=== PATIENT | female | born 1985 | race Caucasian/White ===

== ENCOUNTER 2018-02-28 06:40 | Inpatient (IN) ==
--- NOTE | 2018-02-28 09:31 | ED ---
History of Present Illness Primary Care Physician: UNKNOWN Chief Complaint: Contractions History of Present Illness: 32 year old female at 40 weeks and 2 days who presents with contractions. The contractions began at 1am and have been increasing in intensity and frequency now 3 minutes apart. Denies leakage of fluid or vaginal bleeding. Feeling baby moving. She has vomited twice today. No urinary complaints. Denies SOB, headache, or chest pain. No complications during . care at [facility]. Taking Valtrex prophylactically for herpes. Weeks Gestation:: 40 Para: 0 : 1 Review of Systems All other systems reviewed negative except as stated in HPI Constitutional: Denies fever(s) Cardiovascular: Denies chest pain Respiratory: Denies shortness of breath Gastrointestinal: Reports vomiting Genitourinary: Denies painful urination Neurologic: Denies headache(s) PMFSH - Medical / Surgical Hx Neg / Unobtainable Medical Problems Denied: Yes Surgical History: No Previous Surgery - Tobacco History Second Hand Smoke Exposure: Yes Smoking Status: Current some day smoker (2 cigarettes per day) - Alcohol History How Often Do You Have a Drink Containing Alcohol: Never - Substance Use History Substance History: No History of Abuse Medications and Allergies Allergies Allergy/AdvReac Type Severity Reaction Status Date / Time No Known Allergies Allergy Unverified 08/13/17 08:45 Home Medications Medication Instructions Recorded Confirmed Type valacyclovir [Valtrex] 500 mg PO DAILY 02/28/18 02/28/18 History Exam Vital signs: Vital Signs 02/28/18 06:53 02/28/18 07:19 02/28/18 07:20 Temperature 98.1 F Pulse Rate 76 Respiratory Rate 18 Blood Pressure 126/75 Narrative: GENERAL: Well-nourished, well-developed patient. SKIN: Warm and dry. HEAD: Normocephalic and atraumatic. EYES: No scleral icterus. No injection or drainage. ENT: No nasal drainage noted. Mucous membranes pink. Airway patent. NECK: Supple, trachea midline. No JVD. CARDIOVASCULAR: Regular rate and rhythm without murmurs, gallops, or rubs. RESPIRATORY: Breath sounds equal bilaterally. No accessory muscle use. BREASTS: Bilateral exam showed no masses , no retractions, no nipple discharge. ABDOMEN/GI: Abdomen soft, non-tender, bowel sounds present, no rebound, no guarding GENITOURINARY: External Genitalia: intact and normal in appearance Cervix: posterior Dilatation: 0 Effacement: 70 Station: -2 Membranes:intact Uterine Contractions: yes every 3 minutes FHT's: Category:1 Baseline: 140 Reactive: yes Variability: moderate Decels: none EXTREMITIES: No cyanosis or edema. BACK: Nontender without obvious deformity. No CVA tenderness. NEUROLOGICAL: Awake and alert. Motor and sensory grossly within normal limits. Five out of 5 muscle strength in all muscle groups. Normal speech. Results - Labs CBC & Chem 7: 02/28/18 10:18 Assessment and Plan - Diagnosis (1) Uterine contractions during Code(s): O62.2 - Other uterine inertia Status: Deleted Plan: 32 year old female at 40 weeks and 2 days who presents for contractions. No loss of fluid or vaginal bleeding. Feeling baby moving. Cervical check was 0 , 70, -2. monitoring shows category 1 reassuring and contractions every 3 minute. -Patient was experiencing increased painful contractions -Patient cervical exam was done again and 2cm dilated -Admitted to Labor and delivery - Attending Attestation I personally saw and evaluated the patient, will admit for early labor at term, augment if needed. Discussed risks of , risks and indications of delivery. SMS Discharge Plan - Discharge Order Discharge Orders: Discharge Order (Routine); Ordered 03/03/18 Ordered By: Maria Elena Parekh - Physicians Team Primary Care Provider: UNKNOWN, Attending Provider: Court Aaron V
[2018-02-28] MEDS ORDERED: Sodium Chlor 0.9% Inj 500 ML IV.SIG PRN (10:03)
[2018-02-28] MEDS ORDERED: Oxytocin 30 Units/500ml Premix 30 UNITS/500 ML BAG IV.SIG ONE (10:03)
[2018-02-28] MEDS ORDERED: Naloxone Inj 0.4 MG/ML Vial IV.PUSH PRN (10:03)
[2018-02-28] MEDS ORDERED: fentaNYL Citrate Inj 100 MCG/2 ML Ampul IV.PUSH PRN (10:03)
[2018-02-28] MEDS ORDERED: Sod Chloride 0.9% Inj 1,000 ML IV.CONT PRN (10:03)
--- NOTE | 2018-02-28 10:09 | P.HPOB ---
History of Present Illness Primary Care Physician: UNKNOWN Chief Complaint: Contractions History of Present Illness: 32 year old female at 40 weeks and 2 days who presents with contractions. The contractions began at 1am and have been increasing in intensity and frequency now 3 minutes apart. Denies leakage of fluid or vaginal bleeding. Feeling baby moving. She has vomited twice today. No urinary complaints. Denies SOB, headache, or chest pain. No complications during . GBS negative. care at [facility]. Taking Valtrex prophylactically for herpes. Weeks Gestation:: 40 Para: 0 : 1 Last menstrual period: 05/27/17 Review of Systems Constitutional: Denies chills, Denies fever(s) Cardiovascular: Denies chest pain Respiratory: Denies shortness of breath Gastrointestinal: Reports vomiting Genitourinary: Denies painful urination Neurologic: Denies headache(s) PMFSH - Medical / Surgical Hx Neg / Unobtainable Medical Problems Denied: Yes - Tobacco History Second Hand Smoke Exposure: Yes Smoking Status: Current some day smoker (2 cigarettes per day) - Alcohol History How Often Do You Have a Drink Containing Alcohol: Never - Substance Use History Substance History: No History of Abuse Medications and Allergies Active Medications: Active Medications Citric Acid/Sodium Citrate (Sodium Citrate/Citric Acid Liq) 30 ml PO STAFF CERTIFIED NURSE MIDWIFE [facility] Stop: 03/04/18 10:14 Fentanyl Citrate (Fentanyl Inj) 50 mcg IV.PUSH Q1H PRN PRN Reason: Pain Scale 3 - 5 Fentanyl Citrate (Fentanyl Inj) 100 mcg IV.PUSH Q1H PRN PRN Reason: PAIN SCALE 6 TO 10 Lactated Ringer's (Lr 1000 Ml Inj) 1,000 mls @ 125 mls/hr IV.CONT .Q8H [facility] Lactated Ringer's (Lr 1000 Ml Inj) 1,000 mls @ 3,000 mls/hr IV.SIG UNSCH PRN PRN Reason: compromise or epidural Sodium Chloride (Ns Inj) 500 mls @ 1,000 mls/hr IV.SIG UNSCH PRN PRN Reason: SEE LABEL COMMENTS Sodium Chloride (Ns Inj) 1,000 mls @ 100 mls/hr IV.CONT .Q10H PRN PRN Reason: SEE LABEL COMMENTS Oxytocin (Pitocin 30 Units/Ns 500 Ml Premix) 30 units in 500 mls @ 999 mls/hr IV.SIG BOLUS ONE Stop: 02/28/18 10:33 Lidocaine HCl (Xylocaine 1% Inj) 0.1 ml I-DERMAL PRN PRN PRN Reason: For IV start Stop: 03/03/18 10:02 Lidocaine HCl (Xylocaine 1% Inj) 10 ml INFILTRATN PRN PRN PRN Reason: For episiotomy repair Stop: 03/02/18 10:02 Mineral Oil (Muri-Lube Oil) 10 ml TOPICAL PRN PRN PRN Reason: PRN perineal massage Naloxone HCl (Narcan Inj) 0.1 mg IV.PUSH Q2M PRN PRN Reason: for opiate reversal Allergies Allergy/AdvReac Type Severity Reaction Status Date / Time No Known Allergies Allergy Unverified 08/13/17 08:45 Home Medications Medication Instructions Recorded Confirmed Type valacyclovir [Valtrex] 500 mg PO DAILY 02/28/18 02/28/18 History Exam Vital signs: Vital Signs 02/28/18 06:53 02/28/18 07:19 02/28/18 07:20 Temperature 98.1 F Pulse Rate 76 Respiratory Rate 18 Blood Pressure 126/75 Narrative: GENERAL: Well-nourished, well-developed patient. SKIN: Warm and dry. HEAD: Normocephalic and atraumatic. EYES: No scleral icterus. No injection or drainage. ENT: No nasal drainage noted. Mucous membranes pink. Airway patent. NECK: Supple, trachea midline. No JVD. CARDIOVASCULAR: Regular rate and rhythm without murmurs, gallops, or rubs. RESPIRATORY: Breath sounds equal bilaterally. No accessory muscle use. BREASTS: Bilateral exam showed no masses , no retractions, no nipple discharge. ABDOMEN/GI: Abdomen soft, non-tender, bowel sounds present, no rebound, no guarding GENITOURINARY: External Genitalia: intact and normal in appearance Cervix: posterior Dilatation: 2 Effacement: 70 Station: -2 Membranes:intact Uterine Contractions: yes every 3 minutes FHT's: Category:1 Baseline: 140 Reactive: yes Variability: moderate Decels: none EXTREMITIES: No cyanosis or edema. BACK: Nontender without obvious deformity. No CVA tenderness. NEUROLOGICAL: Awake and alert. Motor and sensory grossly within normal limits. Five out of 5 muscle strength in all muscle groups. Normal speech. Caprini VTE Risk Assessment Caprini VTE Risk Assessment: No/Low Risk (score <= 1) Caprini Risk Assessment Model: Point Value = 1 Point Value = 2 Point Value = 3 Point Value = 5 Age 41-60 Minor surgery BMI > 25 kg/m2 Swollen legs Varicose veins or History of unexplained or recurrent spontaneous Oral contraceptives or hormone replacement Sepsis (< 1 month) Serious lung disease, including pneumonia (< 1 month) Abnormal pulmonary function Acute myocardial infarction Congestive heart failure (< 1 month) History of inflammatory bowel disease Medical patient at bed rest Age 61-74 Arthroscopic surgery Major open surgery (> 45 min) Laparoscopic surgery (> 45 min) Malignancy Confined to bed (> 72 hours) Immobilizing plaster cast Central venous access Age >= 75 History of VTE Family history of VTE Factor V Leiden Prothrombin [id number] Lupus anticoagulant Anticardiolipin antibodies Elevated serum homocysteine Heparin-induced thrombocytopenia Other congenital or acquired thrombophilia Stroke (< 1 month) Elective arthroplasty Hip, pelvis, or leg fracture Acute spinal cord injury (< 1 month) Prophylaxis Regimen: Total Risk Factor Score Risk Level Prophylaxis Regimen 0-1 Low Early ambulation 2 Moderate Order ONE of the following: *Sequential Compression Device (SCD) *Heparin 5000 units SQ BID 3-4 Higher Order ONE of the following medications: *Heparin 5000 units SQ TID *Enoxaparin/Lovenox 40 mg SQ daily (WT < 150 kg, CrCl > 30 mL/min) *Enoxaparin/Lovenox 30 mg SQ daily (WT < 150 kg, CrCl > 10-29 mL/min) *Enoxaparin/Lovenox 30 mg SQ BID (WT < 150 kg, CrCl > 30 mL/min) AND/OR *Sequential Compression Device (SCD) 5 or more Highest Order ONE of the following medications: *Heparin 5000 units SQ TID (Preferred with Epidurals) *Enoxaparin/Lovenox 40 mg SQ daily (WT < 150 kg, CrCl > 30 mL/min) *Enoxaparin/Lovenox 30 mg SQ daily (WT < 150 kg, CrCl > 10-29 mL/min) *Enoxaparin/Lovenox 30 mg SQ BID (WT < 150 kg, CrCl > 30 mL/min) AND *Sequential Compression Device (SCD) Assessment and Plan - Diagnosis (1) Uterine contractions during Code(s): O62.2 - Other uterine inertia Status: Acute Plan: 32 year old female at 40 weeks and 2 days who presents for contractions. No loss of fluid or vaginal bleeding. Feeling baby moving. Cervical check was 0 , 70, -2. monitoring shows category 1 reassuring and contractions every 3 minute. -Patient was experiencing increased painful contractions -Patient cervical exam was done again and 2cm dilated -Admitted to Labor and delivery
[2018-02-28] MEDS ORDERED: Citric Acid/Sodium Citrate Liq 30 ML UDC PO SCH (10:15)
[2018-02-28 10:33] LABS: Baso # (Auto) 0.1 th/mm3 (0.0-0.2); Baso % (Auto) 0.3 % (0.0-2.0); Eos % (Auto) 0.1 % (0.0-4.0); Hematocrit 39.7 % (35.0-46.0); Hemoglobin 13.2 gm/dL (11.6-15.3); Lymph # (Auto) 2.2 th/mm3 (1.0-4.8); Lymph % (Auto) 10.8 % (9.0-44.0); Mean Corpuscular HGB Conc 33.3 % (32.0-36.0); Mean Corpuscular Hemoglobin 29.4 pg (27.0-34.0); Mean Corpuscular Volume 88.5 fL (80.0-100.0); Mean Platelet Volume 10.9 fL (7.0-11.0); Mono # (Auto) 1.2 th/mm3 (0.0-0.9); Mono % (Auto) 6.1 % (0.0-8.0); Neut # (Auto) 16.7 th/mm3 (1.8-7.7); Neut % (Auto) 82.7 % (16.0-70.0); Platelet Count 288 th/mm3 (150-450); Red Blood Count 4.49 mil/mm3 (4.00-5.30); Red Cell Distribution Width 14.2 % (11.6-17.2); White Blood Count 20.2 th/mm3 (4.0-11.0)
[2018-02-28] MEDS: fentaNYL Citrate Inj 100 MCG/2 ML Ampul IV.PUSH PRN ×2 (10:44→10:57)
[2018-02-28] MEDS ORDERED: fentaNYL 2MCG-Bupiv 0.125% Epi 150 ML EPIDURAL ONE (12:11)
[2018-02-28] MEDS ORDERED: fentaNYL 2MCG-Bupiv 0.125% Epi 150 ML EPIDURAL PRN (16:30)
[2018-02-28] MEDS ORDERED: fentaNYL Citrate Inj 100 MCG/2 ML Ampul EPIDURAL ONE (16:30)
--- NOTE | 2018-02-28 19:55 | P.OBLABOR ---
Subjective Interval history: Patient with no complaints. epidural in place Objective Vital Signs: Vital Signs - 8 hr 02/28/18 12:02 02/28/18 13:05 02/28/18 13:10 Temperature Pulse Rate 82 190 H 98 H Respiratory Rate 20 Blood Pressure 117/68 101/60 124/57 L 02/28/18 13:20 02/28/18 13:25 02/28/18 13:35 Temperature Pulse Rate 92 H 89 101 H Respiratory Rate 18 Blood Pressure 118/63 119/65 127/67 02/28/18 13:36 02/28/18 13:37 02/28/18 13:41 Temperature 98.0 F Pulse Rate 106 H 90 Respiratory Rate 18 Blood Pressure 117/69 117/56 L 02/28/18 13:52 02/28/18 14:05 02/28/18 14:15 Temperature Pulse Rate 96 H 91 H 88 Respiratory Rate 18 Blood Pressure 133/72 116/53 L 115/66 02/28/18 14:55 02/28/18 15:00 02/28/18 15:35 Temperature 97.9 F Pulse Rate 87 93 H 96 H Respiratory Rate Blood Pressure 102/63 100/61 106/56 L 02/28/18 15:38 02/28/18 16:00 02/28/18 16:09 Temperature Pulse Rate 102 H Respiratory Rate 16 16 Blood Pressure 98/54 L 02/28/18 16:35 02/28/18 16:46 02/28/18 17:10 Temperature Pulse Rate 79 87 118 H Respiratory Rate Blood Pressure 102/61 104/42 L 102/64 02/28/18 17:15 02/28/18 17:30 02/28/18 17:35 Temperature Pulse Rate 106 H 93 H Respiratory Rate 16 Blood Pressure 101/67 105/61 02/28/18 17:45 02/28/18 18:04 02/28/18 18:35 Temperature 98.3 F Pulse Rate 90 94 H 92 H Respiratory Rate 16 Blood Pressure 115/73 109/76 115/73 02/28/18 18:42 02/28/18 19:10 02/28/18 19:14 Temperature Pulse Rate 100 H Respiratory Rate 16 16 Blood Pressure 103/52 L 02/28/18 19:15 02/28/18 19:20 02/28/18 19:25 Temperature Pulse Rate 99 H 101 H 98 H Respiratory Rate Blood Pressure 107/61 97/60 L Objective: Pelvic Exam: Dilatation: 7 cm per nurse exam Effacement: 100% per nurse exam Station: -1 per nursing exam Membranes: Bulging per nurse exam FHT's: Category: Category 1 Baseline: 145 Variability: moderate Decels: no decels Weeks Gestation: 40 Patient Started Active Labor: Yes Active Labor Start Date: 02/28/18 Medical Induction of Labor: No Artificial Rupture of Membrane: No Assessment and Plan - Diagnosis (1) Uterine contractions during Code(s): O62.2 - Other uterine inertia Status: Acute Plan: - IUP at 40 and 2 weeks in active labor - Anticipate - Continue routine management
[2018-02-28 20:21] LABS: Bacteria,Urine Rare /hpf; Bilirubin,Urine Negative (Negative); Clarity,Urine Clear (Clear); Color,Urine Yellow (Yellw/Straw); Glucose,Urine (UA) Negative (Negative); Leukocyte Esterase,Urine Negative (Negative); Nitrite,Urine Negative (Negative); Squamous Epithelial Cell,Urine 3 /hpf (0-5)
[2018-02-28 20:25] LABS: Amphetamine Urine With Conf Neg (Neg); Benzodiazepine Urine With Conf Neg (Neg)
[2018-02-28] MEDS ORDERED: Oxytocin 30 Units/500ml Premix 30 UNITS/500 ML BAG IV.SIG PRN (20:50)
[2018-03-01] MEDS ORDERED: Bupivacaine PF 0.25% Inj 10 ML Vial ONE (03:20)
[2018-03-01] MEDS ORDERED: Lidocaine 2%/Epinephrine 1:200,000 PF 10 ML SDV ONE (03:20)
[2018-03-01] MEDS ORDERED: Acetaminophen 325 MG Tablet PO SCH (03:30)
[2018-03-01] MEDS ORDERED: Gentamicin Inj 100 MG in Sodium Chlor 0.9% Inj 100 ML IV.SIG ONE (04:30)
[2018-03-01] MEDS ORDERED: Lidocaine 1% Inj 50 ML Vial ONE (09:21)
[2018-03-01 09:35] LABS: Cord Arterial Blood HCO3 20.2
[2018-03-01] MEDS ORDERED: Zolpidem Tartrate 5 MG Tablet PO PRN (09:42)
[2018-03-01] MEDS ORDERED: Bisacodyl 10 MG Supp RECTAL PRN (09:42)
[2018-03-01] MEDS ORDERED: Benzocaine 20% Top Spray 60 ML Can TOPICAL PRN (09:42)
[2018-03-01] MEDS ORDERED: Acetaminophen 325 MG Tablet PO PRN (09:42)
[2018-03-01] MEDS ORDERED: Naloxone Inj 0.4 MG/ML Vial IV.PUSH PRN (09:42)
--- NOTE | 2018-03-01 09:43 | P.OBDELI ---
Weeks Gestation: 40 Patient Started Active Labor: Yes Medical Induction of Labor: Yes Anesthesia: Epidural Episiotomy: none Vaginal Delivery: Normal, Spontaneous Presentation: Occiput anterior Nuchal Cord: None Delayed Cord Clamping (45 sec): Yes Placenta: Spontaneous delivery Laceration: 2 deg Repair: Vicryl running Estimated blood loss (mL): 400 : Female Infant Delivery Date: 03/01/18 Infant Delivery Time: 09:14 score (1 min): 8 score (5 min): 9
[2018-03-01] MEDS ORDERED: Oxytocin 30 Units/500ml Premix 30 UNITS/500 ML BAG IV.CONT SCH (10:00)
[2018-03-01] MEDS: Witch Hazel 50%/Glyderin 12.5% 40 Pad Jar RECTAL PRN (12:04)
[2018-03-01] MEDS ORDERED: Ketorolac Inj 30 MG/ML (IVP) Vial IV.PUSH ONE (14:53)
[2018-03-01] MEDS ORDERED: Diphtheria/Tetanus/Pertussis Vaccine Inj 0.5 ML Syringe IM ONE (16:00)
[2018-03-01] MEDS ORDERED: Measles/Mumps/Rubella Vaccine Inj 0.5 ML Vial SQ ONE (16:00)
[2018-03-01] MEDS ORDERED: Senna/Docusate Sodium 8.6/50 MG Tablet PO SCH (21:00)
--- NOTE | 2018-03-02 08:11 | P.PNOB ---
Subjective Post day: 1 Interval history: Patient is a 32 year-old delivered at 40 weeks and 3 days. Patient is day 1 after . Patient's pain is well-controlled. Patient reports eating and drinking without any nausea or vomiting. Patient reports minimal bleeding. Patient has passed gas but no bowel movements. Patient is walking without lower extremity pain or shortness of breath. Patient reports desire for contraception is control and breast-feeding. Objective Vital Signs/I&O: Vital Signs 03/01/18 08:40 03/01/18 09:01 03/01/18 09:15 Temperature 99.9 F H Pulse Rate 103 H 113 H Respiratory Rate Blood Pressure 119/61 03/01/18 09:30 03/01/18 09:35 03/01/18 09:45 Temperature Pulse Rate 96 H 91 H Respiratory Rate 18 Blood Pressure 117/83 120/72 03/01/18 09:50 03/01/18 10:00 03/01/18 10:13 Temperature 99.2 F Pulse Rate 96 H 76 Respiratory Rate Blood Pressure 112/76 113/69 03/01/18 10:30 03/01/18 11:00 03/01/18 12:00 Temperature 98.2 F Pulse Rate 83 96 H 85 Respiratory Rate 18 Blood Pressure 123/62 115/67 126/74 03/01/18 19:53 Temperature 97.7 F Pulse Rate 88 Respiratory Rate 18 Blood Pressure 126/68 Result Diagrams: 02/28/18 10:18 Objective Remarks: GENERAL: Well-nourished, well-developed patient. CARDIOVASCULAR: Regular rate and rhythm without murmurs, gallops, or rubs. RESPIRATORY: Breath sounds equal bilaterally. No accessory muscle use. ABDOMEN/GI: Abdomen soft, non-tender. Fundus: Firm, non-tender at umbilicus. GENITOURINARY: Light to moderate bleeding. EXTREMITIES: No cyanosis or edema, non-tender, without signs of DVT. Medications and IVs: Active Medications Acetaminophen (Tylenol) 650 mg PO Q4H PRN PRN Reason: PAIN SCALE 1 TO 2 Last Admin: 03/01/18 12:04 Dose: 650 mg Al Hydroxide/Mg Hydroxide (Milk Of Magnesia Liq) 30 ml PO Q12H PRN PRN Reason: Mild Constipation Benzocaine (Americaine 20% Top [place]) 1 spray TOPICAL Q4H PRN PRN Reason: For Perineum Discomfort Last Admin: 03/01/18 12:05 Dose: 1 spray Bisacodyl (Dulcolax Supp) 10 mg RECTAL DAILY PRN PRN Reason: SEVERE CONSITIPATION Fentanyl/Bupivacaine/Sodium Chlor (Fentanyl 2 Mcg-Bupiv 0.125% Epi) 150 mls @ 10 mls/hr EPIDURAL PRN PRN PRN Reason: for Labor Pain Oxytocin (Pitocin 30 Units/Ns 500 Ml Premix) 30 units in 500 mls @ 2 mls/hr IV.SIG TITRATE PRN; Protocol PRN Reason: For induction of labor Last Admin: 02/28/18 21:04 Dose: 2 milliunit/min, 2 mls/hr Ibuprofen (Motrin) 800 mg PO Q8H PRN PRN Reason: For cramping Last Admin: 03/01/18 20:38 Dose: 800 mg Lactulose (Lactulose Liq) 30 ml PO DAILY PRN PRN Reason: SEVERE CONSITIPATION Naloxone HCl (Narcan Inj) 0.1 mg IV.PUSH Q2M PRN PRN Reason: for opiate reversal Ondansetron HCl (Zofran Odt) 4 mg PO Q6H PRN PRN Reason: NAUSEA OR VOMITING Senna/Docusate Sodium (Maya-Colace) 1 tab PO BID CHRISTIAN Sennosides (Senokot) 17.2 mg PO Q12H PRN PRN Reason: Moderate Constipation Sodium Chloride (Ns Flush) 2 ml IV.FLUSH UNSCH PRN PRN Reason: FLUSH AFTER USING IV ACCESS Sodium Chloride (Ns Flush) 2 ml IV.FLUSH BID CHRISTIAN Witch Marifer/Glycerin (Tucks Pads) 1 applicatio RECTAL QID PRN PRN Reason: HEMORRHOIDS Last Admin: 03/01/18 12:04 Dose: 1 applicatio Zolpidem Tartrate (Ambien) 5 mg PO HS PRN PRN Reason: SLEEP Assessment and Plan - Diagnosis (1) Vaginal delivery Code(s): O80 - Encounter for full-term uncomplicated delivery Status: Acute Plan: Patient is a 32 year-old delivered at 40 weeks and 3 days. Patient is day 1 after . Patient was counseled to do 6 weeks of pelvic rest. Patient was counseled to follow up in 6 weeks. --AF VSS --Continue routine care --Motrin and Tylenol when necessary for pain --Encourage OOB --Pelvic rest for 6 weeks will need follow-up appointment at that time. --Contraception: OCP --Anticipate discharge tomorrow
[2018-03-02] MEDS: Witch Hazel 50%/Glyderin 12.5% 40 Pad Jar RECTAL PRN (09:01)
--- NOTE | 2018-03-03 07:04 | P.PNOB ---
Subjective Post day: 2 Interval history: Patient is a 32 year-old delivered at 40 weeks and 3 days. Patient is day 2 after . Patient's pain is well-controlled. Patient reports eating and drinking without any nausea or vomiting. Patient reports minimal bleeding. Patient has passed gas and bowel movement. Patient is walking without lower extremity pain or shortness of breath. Patient reports desire for contraception is control and breast-feeding. Objective Vital Signs/I&O: Vital Signs 03/02/18 08:00 03/02/18 20:00 Temperature 97.7 F 98.1 F Pulse Rate 77 83 Respiratory Rate 20 19 Blood Pressure 113/65 106/72 Result Diagrams: 02/28/18 10:18 Objective Remarks: GENERAL: Well-nourished, well-developed patient. CARDIOVASCULAR: Regular rate and rhythm without murmurs, gallops, or rubs. RESPIRATORY: Breath sounds equal bilaterally. No accessory muscle use. ABDOMEN/GI: Abdomen soft, non-tender. Fundus: Firm, non-tender at umbilicus. GENITOURINARY: Light to moderate bleeding. EXTREMITIES: No cyanosis or edema, non-tender, without signs of DVT. Medications and IVs: Active Medications Acetaminophen (Tylenol) 650 mg PO Q4H PRN PRN Reason: PAIN SCALE 1 TO 2 Last Admin: 03/01/18 12:04 Dose: 650 mg Al Hydroxide/Mg Hydroxide (Milk Of Marcio Liq) 30 ml PO Q12H PRN PRN Reason: Mild Constipation Benzocaine (Americaine 20% Top [place]) 1 spray TOPICAL Q4H PRN PRN Reason: For Perineum Discomfort Last Admin: 03/01/18 12:05 Dose: 1 spray Bisacodyl (Dulcolax Supp) 10 mg RECTAL DAILY PRN PRN Reason: SEVERE CONSITIPATION Fentanyl/Bupivacaine/Sodium Chlor (Fentanyl 2 Mcg-Bupiv 0.125% Epi) 150 mls @ 10 mls/hr EPIDURAL PRN PRN PRN Reason: for Labor Pain Oxytocin (Pitocin 30 Units/Ns 500 Ml Premix) 30 units in 500 mls @ 2 mls/hr IV.SIG TITRATE PRN; Protocol PRN Reason: For induction of labor Last Admin: 02/28/18 21:04 Dose: 2 milliunit/min, 2 mls/hr Ibuprofen (Motrin) 800 mg PO Q8H PRN PRN Reason: For cramping Last Admin: 03/03/18 04:20 Dose: 800 mg Lactulose (Lactulose Liq) 30 ml PO DAILY PRN PRN Reason: SEVERE CONSITIPATION Naloxone HCl (Narcan Inj) 0.1 mg IV.PUSH Q2M PRN PRN Reason: for opiate reversal Ondansetron HCl (Zofran Odt) 4 mg PO Q6H PRN PRN Reason: NAUSEA OR VOMITING Oxycodone/Acetaminophen (Percocet 5/325 Mg) 1 tab PO Q4H PRN PRN Reason: ABDOMINAL PAIN Last Admin: 03/03/18 04:20 Dose: 1 tab Senna/Docusate Sodium (Maya-Colace) 1 tab PO BID CHRISTIAN Last Admin: 03/03/18 04:19 Dose: 1 tab Sennosides (Senokot) 17.2 mg PO Q12H PRN PRN Reason: Moderate Constipation Sodium Chloride (Ns Flush) 2 ml IV.FLUSH UNSCH PRN PRN Reason: FLUSH AFTER USING IV ACCESS Sodium Chloride (Ns Flush) 2 ml IV.FLUSH BID CHRISTIAN Witch Marifer/Glycerin (Tucks Pads) 1 applicatio RECTAL QID PRN PRN Reason: HEMORRHOIDS Last Admin: 03/02/18 09:01 Dose: 1 applicatio Zolpidem Tartrate (Ambien) 5 mg PO HS PRN PRN Reason: SLEEP Assessment and Plan - Diagnosis (1) Vaginal delivery Code(s): O80 - Encounter for full-term uncomplicated delivery Status: Acute Plan: Patient is a 32 year-old delivered at 40 weeks and 3 days. Patient is day 2 after . Patient was counseled to do 6 weeks of pelvic rest. Patient was counseled to follow up in 6 weeks. --AF VSS --Continue routine care --Motrin and Tylenol when necessary for pain --Encourage OOB --Pelvic rest for 6 weeks will need follow-up appointment at that time. --Contraception: OCP --Discharge today
[2018-03-03] MEDS: Witch Hazel 50%/Glyderin 12.5% 40 Pad Jar RECTAL PRN (09:10)
[2018-03-05 17:51] VITALS: BP 106/72; PULSE 83
[2018-03-05 18:02] VITALS: TEMP 98.1
[2018-03-05 19:17] VITALS: RESP 19
== END 2018-03-03 13:49 | disposition home or self-care (01) ==
LOC: HOBED 06:40 → H2E 10:14 → H1EA 03-01 11:28
PROVIDERS: ADMIT Obstetrics & Gynecology; ATTEND Obstetrics & Gynecology